=== PATIENT | male | born 1980 | race Asian ===

== ENCOUNTER 2019-02-21 20:53 | Emergency (ER) | payer MEDICAID ==
[~2019-02-21] VITALS: Ht 170.2 cm; Wt 99.8 kg
[2019-02-21 20:59] VITALS: BP 141/93
[2019-02-21 21:05] VITALS: BP 141/93
--- NOTE | 2019-02-21 21:05 | NUR ---
TO LOBBY A/W BED, AMB, VSS, EKG DONE NSR NOTED BY HOWARD
--- NOTE | 2019-02-21 21:14 | NUR ---
EKG PERFORMED IN TRIAGE ROOM
[2019-02-21 21:52] LABS: BASOPHILS % (AUTO) 0.4 % (0.0-2.0); EOSINOPHILS # (AUTO) 0.1 K/uL (0-0.4); HEMATOCRIT 50.5 % (36-52); HEMOGLOBIN 17.4 g/dL (12.0-18.0); LYMPHOCYTES # (AUTO) 1.5 K/uL (2.0-11.5); LYMPHOCYTES % (AUTO) 15.5 % (20.5-51.1); MEAN CORPUSCULAR HEMOGLOBIN 30 pg (27-31); MEAN CORPUSCULAR HGB CONC 34 g/dL (33-37); MEAN CORPUSCULAR VOLUME 87.1 fL (80-94); MONOCYTES # (AUTO) 0.6 K/uL (0.8-1.0); MONOCYTES % (AUTO) 6.6 % (1.7-9.3); NEUTROPHILS # (AUTO) 7.6 K/uL (1.8-7.7); NEUTROPHILS % (AUTO) 76.5 % (42.2-75.2); PLATELET COUNT (AUTO) 197 K/uL (140-450); RED CELL DISTRIBUTION WIDTH 13.5 % (11.6-13.7); WHITE BLOOD COUNT (AUTO) 9.9 K/uL (4.8-10.8)
[2019-02-21 22:10] LABS: CARBON DIOXIDE 26.9 mmol/L (21-32); POTASSIUM 3.9 mmol/L (3.5-5.1)
[2019-02-21 22:22] LABS: ALBUMIN 4.4 g/dL (3.4-5.0); TOTAL BILIRUBIN 0.7 mg/dL (0.0-1.0)
--- NOTE | 2019-02-21 22:35 | NUR ---
PATIENT LEFT WITHOUT BEING SEEN BY DR. FORBES. CALLEX X2 AT 22:35, 22:55, AND 23:10. NO FURTHER CARE PROVIDED FOR PATIENT.
--- NOTE | 2019-02-21 22:38 | NUR ---
CALLED PT, NO ANSWER AT [facility].
== END 2019-02-21 22:35 | disposition left against medical advice (07) ==
LOC: MED 20:53
DX: R07.9 Chest pain, unspecified (principal); Z53.21 Procedure and treatment not carried out due to patient leaving prior to being seen by health care provider
CPT/HCPCS: 36415; 80053; 83880; 84484; 85025; 93005; 99281; 99284